=== PATIENT | male | born 1955 | race African-American/Black ===

== ENCOUNTER 2019-09-03 12:11 | Emergency (ER) | payer SELFPAY ==
[2019-09-03] MEDS ORDERED: DIAZEPAM 10 MG/2 ML INJ SYRINGE ONE (12:40)
[2019-09-03] MEDS ORDERED: NA CHLORIDE 0.9% 1,000 ML ONE (12:40)
[2019-09-03] MEDS ORDERED: ONDANSETRON 4 MG/2 ML VIAL ONE (12:40)
[2019-09-03] MEDS ORDERED: MORPHINE 4 MG/ML SYR ONE ×2 (12:41→15:22)
[2019-09-03 13:12] LABS: Absolute Lymphocytes (CBC) 0.8 K/uL (0.7-4.9); Basophils % 0.6 % (0-1.3); Hematocrit 32.9 % (39.6-49.0); Lymphocytes % 14.7 % (15.3-44.8); MPV 6.9 fL (7.6-11.3); RBC Red Blood Cell Count 3.91 M/uL (4.33-5.43)
[2019-09-03 13:36] LABS: ALT/SGPT 27 U/L (12-78); AST/SGOT 17 U/L (15-37); Alkaline Phosphatase 54 U/L (45-117); BUN Blood Urea Nitrogen 11 mg/dL (7-18); Bicarbonate 27 mmol/L (21-32); Bilirubin Direct < 0.1 mg/dL (0-0.2); Bilirubin Total 0.4 mg/dL (0.2-1.0); Glucose Level 107 mg/dL (74-106); Lipase 98 U/L (73-393); Potassium 4.4 mmol/L (3.5-5.1); Protein, Total 7.9 g/dL (6.4-8.2); Sodium Level 142 mmol/L (136-145)
--- NOTE | 2019-09-03 14:51 | RAD REPORT ---
EXAM DESCRIPTION: MRI - Spine Lumbar W/Wo Cont- 09/03/2019 2:39 pm CLINICAL HISTORY: LOWER BACK PAIN Back pain, radiculopathy. COMPARISON: No comparisons FINDINGS: Vertebral body heights are within normal limits. Mildly heterogenous marrow pattern is seen. No fracture is suspected. The conus medullaris terminates at a normal level. No thickening of the cauda equina or clumping of n erve roots seen. L1-2 level: No significant findings. L2-3 level: Mild facet hypertrophy. L3-4 level: Broad-based posterior bulge is present with moderate facet and ligamentum flavum hypertro phy. Moderate central canal stenosis is present with lateral recess stenosis on the left suspected. B oth exit foramina are moderately narrowed. L4-5 level: Mild posterior disc bulge asymmetric to the left foraminal region is reason with mild fac et and ligamentum flavum hypertrophy. Mild attenuation of the left lateral recess is seen. Mild narro wing of both exit foramina. L5-S1 level: Minimal degenerative anterolisthesis is present with small central disc protrusion prese nt. Mild facet and ligamentum flavum hypertrophy is seen. Mild central canal narrowing is evident. Mo derate narrowing of both exit foramina seen. No pathologic post-contrast enhancement seen to indicate tumor or infection. IMPRESSION: Moderate multilevel lower lumbar spondylosis is present, most significant at L3-4. No pathologic post-contrast enhancement.
[2019-09-03 15:28] LABS: Urine Blood NEGATIVE (NEG); Urine Glucose NEGATIVE (NEG); Urine Protein NEGATIVE (NEG); Urine pH 6.5 (5.0-7.0)
[2019-09-03 16:05] LABS: Urine Bacteria <20 /HPF (NONE SEEN); Urine Culture Reflex Order NOT NEEDED; Urine RBC <5 /HPF (NONE SEEN)
[2019-09-03] MEDS ORDERED: HYDROCODONE/APAP 10/325 TAB ONE (16:33)
--- NOTE | 2019-09-03 17:42 | EDPHYS ---
Physician Documentation [facility] Name: Piotr Gibson Age: 64 yrs Sex: Male : 1955 Arrival Date: 09/03/2019 Time: 12:16 Bed 25 Private MD: ED Physician Gerald Hernandez HPI: 09/02 12:21 This 64 yrs old Male presents to ER via Unassigned with complaints of back pain. cp 12:21 The patient presents with pain that is acute, with no known mechanism of injury. The cp symptoms are located in the low back. Onset: The symptoms/episode began/occurred 3 day(s) ago. 12:21 The pain radiates to the left leg. cp 12:21 Associated signs and symptoms: Pertinent positives: constipation, weakened urine cp stream, Pertinent negatives: abdominal pain, chest pain, fever, incontinence, numbness, urinary retention, weakness. Historical: - Allergies: 12:23 Shrimp; vc - Home Meds: 12:23 amlodipine 5 mg tab 1 tab once daily [Active]; atorvastatin 10 mg oral tab 1 tab once vc daily [Active]; - PMHx: 12:23 Hypertension; Hyperlipidemia; vc - PSHx: 12:23 None; vc - Immunization history:: Adult Immunizations up to date. - Social history:: Smoking status: Patient/guardian denies using tobacco, the patient reports quitting approximately 15 years ago. ROS: 12:30 Constitutional: Negative for body aches, chills, fever, poor PO intake. cp 12:30 Eyes: Negative for injury, pain, redness, and discharge. cp 12:30 ENT: Negative for drainage from ear(s), ear pain, sore throat, difficulty swallowing, difficulty handling secretions. 12:30 Cardiovascular: Negative for chest pain, edema, palpitations. 12:30 Respiratory: Negative for cough, shortness of breath, wheezing. 12:30 Abdomen/GI: Positive for constipation, Negative for abdominal pain, nausea, vomiting, and diarrhea, constipation, black/tarry stool, rectal bleeding, bowel incontinence. 12:30 Back: Positive for decreased range of motion, pain at rest, pain with movement, of the low back area, Negative for injury or acute deformity. 12:30 : Positive for difficulty urinating, Negative for testicular pain 12:30 All other systems are negative. Exam: 12:35 Constitutional: The patient appears in no acute distress, alert, awake, cp non-diaphoretic, non-toxic, well developed, well nourished, uncomfortable. 12:35 Head/Face: Normocephalic, atraumatic. cp 12:35 Eyes: Periorbital structures: appear normal, Conjunctiva: normal, no exudate, no injection, Sclera: no appreciated abnormality, Lids and lashes: appear normal, bilaterally. 12:35 ENT: External ear(s): are unremarkable, Nose: is normal, Mouth: Lips: moist, Oral mucosa: pink and intact, moist, Posterior pharynx: is normal, airway is patent, no erythema, no exudate. 12:35 Neck: ROM/movement: is normal, is supple, without pain, no range of motions limitations, no nuchal rigidity. 12:35 Chest/axilla: Inspection: normal, Palpation: is normal, no crepitus, no tenderness. 12:35 Cardiovascular: Rate: normal, Rhythm: regular, Edema: is not appreciated, JVD: is not appreciated. 12:35 Respiratory: the patient does not display signs of respiratory distress, Respirations: normal, no use of accessory muscles, no retractions, labored breathing, is not present, Breath sounds: are clear throughout, no decreased breath sounds, no stridor, no wheezing. 12:35 Abdomen/GI: Inspection: abdomen appears normal, Bowel sounds: active, all quadrants, Palpation: soft, in all quadrants, nontender, in all quadrants, voluntary guarding, is not appreciated, involuntary guarding, is not appreciated. 12:35 Abdomen/GI: Rectal exam: rectal tone normal, Stool: brown, guaiac negative. cp 12:35 Back: pain, that is severe, of the low back area, ROM is painful, with all movement, Straight leg raises: right lower extremity does not illicit pain, left lower extremity illicits pain, at 45 degrees. 12:35 Skin: cellulitis, is not appreciated, no rash present. 12:35 Neuro: Orientation: to person, place \T\ time. Mentation: is normal, Motor: moves all fours, strength is normal, Sensation: is normal, Deep tendon reflexes are 2+ (normal) in the right patellar, right Achilles, left patellar and left Achilles. Vital Signs: 12:15 BP 159 / 74; Pulse 87; Resp 15; Temp 98.7(O); Pulse Ox 99% on R/A; Weight 79.38 kg; vc Height 5 ft. 10 in. (177.80 cm); Pain 10/10; 13:15 BP 141 / 81; Pulse 93; Resp 16; Pulse Ox 97% on R/A; rb1 15:02 BP 181 / 83; Pulse 104; Resp 17; Pulse Ox 98% on R/A; rb1 16:22 BP 182 / 92; Pulse 97; Resp 18; Pulse Ox 97% on R/A; mh5 17:14 BP 176 / 80; Pulse 99; Resp 19; Pulse Ox 97% on R/A; rb1 12:15 Body Mass Index 25.11 (79.38 kg, 177.80 cm) vc MDM: 12:21 Patient medically screened. cp 16:15 Physician consultation: was contacted at 16:15, regarding consult, patient's condition, cp DR Rakan Perry, neurosurgery with [facility], recommends outpatient follow-up in clinic next week. Patient does not need to be transferred for continued care. 17:36 ED course: No results found according to the [place] prescription monitoring program cp website. 17:40 Data reviewed: vital signs, nurses notes, lab test result(s), radiologic studies, MRI, cp I have discussed the patient's presentation/case with the attending Emergency Department Physician; and as a result, I will discharge patient. 17:40 Response to treatment: the patient's symptoms have markedly improved after treatment, cp VSS. Pain markedly improved and patient ambulated unassisted in ED, and as a result, I will discharge patient. 09/02 12:19 Order name: Basic Metabolic Panel; Complete Time: 13:47 cp 09/02 13:47 Interpretation: Normal except: CL 110; GLUC 107; GFR 73. cp 09/02 12:19 Order name: CBC with Diff; Complete Time: 13:47 cp 09/02 13:47 Interpretation: Normal except: RBC 3.91; HGB 10.8; HCT 32.9; MPV 6.9; DAI% 74.0; LYM% cp 14.7. 09/02 12:19 Order name: Creatinine for Radiology; Complete Time: 13:47 cp 09/02 12:19 Order name: Hepatic Function; Complete Time: 13:47 09/02 13:48 Interpretation: Normal except: ALB 3.0; GLOB 4.9; A/G 0.6. 09/02 12:19 Order name: Lipase; Complete Time: 13:47 09/02 14:56 Order name: Urine Microscopic Only; Complete Time: 16:13 09/02 13:04 Order name: Spine Lumbar W/Wo Cont; Complete Time: 15:23 EDMS 09/02 15:32 Interpretation: Report reviewed. 09/02 15:23 Order name: Urine Dipstick--Ancillary (enter results) 09/02 15:29 Order name: Urine Dipstick-Ancillary EDWV 09/02 12:19 Order name: IV Saline Lock; Complete Time: 13:09 09/02 12:19 Order name: Labs collected and sent; Complete Time: 13:09 09/02 14:56 Order name: Urine Dipstick-Ancillary (obtain specimen); Complete Time: 15:17 09/02 14:56 Order name: Bladder Scanner: pre and post void; Complete Time: 15:27 cp Administered Medications: 12:23 CANCELLED (Physician Discretion): fentaNYL (PF) 25 mcg IVP once; RASS on ADMIN: cp Combtv4, Very Agttd3, Agttd2, Rstlss1, AlertClm0, Drwsy-1, Lt Sdtn-2, Mod Sdtn-3, Dp Sdtn-4, UnArsble-5 13:00 Drug: Zofran (Ondansetron) 4 mg Route: IVP; Site: left antecubital; vc 13:15 Follow up: Response: No adverse reaction rb1 13:03 Drug: Diazepam 2 mg Route: IVP; Site: left antecubital; vc 13:15 Follow up: Response: No adverse reaction rb1 13:15 Follow up: Response: No adverse reaction; Anxiety decreased rb1 13:05 Drug: morphine 4 mg Route: IVP; Site: left antecubital; vc 13:15 Follow up: Response: No adverse reaction; Pain is decreased rb1 13:08 Drug: NS 0.9% 1000 ml Route: IV; Rate: 1 bolus; Site: left antecubital; vc 15:07 Follow up: IV Status: Completed infusion rb1 15:25 Drug: morphine 4 mg Route: IVP; Site: left antecubital; rb1 15:40 Follow up: Response: No adverse reaction; Pain is decreased rb1 16:31 Drug: HYDROcodone-acetaminophen 10 mg-325 mg 1 tabs Route: PO; rb1 17:04 Follow up: Response: No adverse reaction; Pain is decreased rb1 Disposition: 09/03 07:09 Co-signature as Attending Physician, Gerald Hernandez MD I agree with the assessment and kdr plan of care. Disposition: 09/03/19 17:40 Discharged to Home. 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 - Condition is Stable. - Discharge Instructions: Back Pain, Adult, Heat Therapy, Back Exercises. - Prescriptions for Tylenol- Codeine #3 300-30 mg Oral Tablet - take 2 tablet by ORAL route every 6 hours As needed; 30 tablet. Medrol (William) 4 mg Oral Tablets, Dose Pack - take 1 tablet by ORAL route as directed - follow package instructions; 1 packet. orphenadrine citrate 100 mg Oral Tablet Sustained Release - take 1 tablet by ORAL route 2 times per day As needed; 20 tablet. - Medication Reconciliation Form, Thank You Letter, Antibiotic Education, Prescription Opioid Use form. - Follow up: Private Physician; When: DR Rakan Perry, neurosurgery \T\[facility] next week; Reason: Recheck today's complaints. - Problem is new. - Symptoms have improved. Signatures: Dispatcher [employer] EDMS Gerald Hernandez MD MD kdr Antonio Huddleston PA PA cp Marla Loyd, RN RN rb1 Thelma Kim RN RN vc Corrections: (The following items were deleted from the chart) 09/02 12:23 12:19 fentaNYL (PF) 25 mcg IVP once; RASS on ADMIN: Combtv4, Very Agttd3, Agttd2, cp Rstlss1, AlertClm0, Drwsy-1, Lt Sdtn-2, Mod Sdtn-3, Dp Sdtn-4, UnArsble-5 ordered. cp 13:03 12:44 Lumbar Spine Wo Con+MRI.RAD.BRZ ordered. EDMS EDMS 13:23 12:21 Angio Aorta For Dissection+CT.RAD.BRZ ordered. EDMS EDMS 18:46 17:40 09/03/2019 17:40 Discharged to Home. Impression: Low back pain; Intervertebral rb1 disc stenosis of neural canal of lumbar region - L3-L4. Condition is Stable. Forms are Medication Reconciliation Form, Thank You Letter, Antibiotic Education, Prescription Opioid Use. Follow up: Private Physician; When: DR Rakan Perry, neurosurgery \T\[facility] next week; Reason: Recheck today's complaints. Problem is new. Symptoms have improved. cp
--- NOTE | 2019-09-03 17:42 | ER ---
Nurse's Notes [facility] Name: Piotr Gibson Age: 64 yrs Sex: Male : 1955 Arrival Date: 09/03/2019 Time: 12:16 Bed 25 Private MD: Diagnosis: Low back pain;Intervertebral disc stenosis of neural canal of lumbar [id number] Presentation: 09/02 12:15 Initial Sepsis Screen: Does the patient meet any 2 criteria? No. Patient's initial vc sepsis screen is negative. Does the patient have a suspected source of infection? No. Patient's initial sepsis screen is negative. Risk Assessment: Do you want to hurt yourself or someone else? Patient reports no desire to harm self or others. 12:15 Acuity: WALESKA 3 vc 12:17 Chief complaint: Patient states: "I woke up Saturday morning thinking I had slept wrong, vc but today it is just worse. I can barely move or sit up." EMS states: "We were called because the PA wants to rule out aortic dissection. He woke up Saturday with back spasms and today it is just worse.". Coronavirus screen: Patient denies fever greater than 100.4F, cough, shortness of breath, or difficulty breathing. Proceed with normal triage process. Ebola Screen: No symptoms or risks identified at this time. 12:17 Method Of Arrival: EMS: [facility] vc 12:25 Care prior to arrival: Medication(s) given: methocarbamol 750mg x 2 tabs. vc 12:27 Onset of symptoms was August 31, 2019 at 08:00. vc Triage Assessment: 12:27 General: Appears in no apparent distress. uncomfortable, Behavior is calm, cooperative, vc appropriate for age. Pain: Complains of pain in left low back Aggravated by increased activity, movement. Historical: - Allergies: 12:23 Shrimp; vc - Home Meds: 12:23 amlodipine 5 mg tab 1 tab once daily [Active]; atorvastatin 10 mg oral tab 1 tab once vc daily [Active]; - PMHx: 12:23 Hypertension; Hyperlipidemia; vc - PSHx: 12:23 None; vc - Immunization history:: Adult Immunizations up to date. - Social history:: Smoking status: Patient/guardian denies using tobacco, the patient reports quitting approximately 15 years ago. Screenin:26 Abuse screen: Denies threats or abuse. Nutritional screening: No deficits noted. vc Tuberculosis screening: No symptoms or risk factors identified. Fall Risk None identified. Assessment: 12:27 General: See triage assessment. rb1 13:30 Reassessment: Patient appears in no apparent distress at this time. Patient and/or rb1 family updated on plan of care and expected duration. Pain level reassessed. Patient is alert, oriented x 3, equal unlabored respirations, skin warm/dry/pink. CO's at the bedside. 14:30 Reassessment: Pt. is off the unit for testing. rb1 15:00 Reassessment: Patient appears in no apparent distress at this time. Patient and/or rb1 family updated on plan of care and expected duration. Pain level reassessed. Patient is alert, oriented x 3, equal unlabored respirations, skin warm/dry/pink. Pain 6/10. Describes pain in the left lower back that radiates down the left leg. 16:00 Reassessment: Patient appears in no apparent distress at this time. No changes from rb1 previously documented assessment. 16:40 Reassessment: Patient appears in no apparent distress at this time. Patient and/or rb1 family updated on plan of care and expected duration. Pain level reassessed. Patient is alert, oriented x 3, equal unlabored respirations, skin warm/dry/pink. 17:40 Reassessment: Patient appears in no apparent distress at this time. Pt. ambulated rb1 around the nurse's station without difficulty. 18:24 Reassessment: [facility] [employer] [facility] for [facility] back to the [facility] facility. Vital Signs: 12:15 BP 159 / 74; Pulse 87; Resp 15; Temp 98.7(O); Pulse Ox 99% on R/A; Weight 79.38 kg; vc Height 5 ft. 10 in. (177.80 cm); Pain 10/10; 13:15 BP 141 / 81; Pulse 93; Resp 16; Pulse Ox 97% on R/A; rb1 15:02 BP 181 / 83; Pulse 104; Resp 17; Pulse Ox 98% on R/A; rb1 16:22 BP 182 / 92; Pulse 97; Resp 18; Pulse Ox 97% on R/A; mh5 17:14 BP 176 / 80; Pulse 99; Resp 19; Pulse Ox 97% on R/A; rb1 12:15 Body Mass Index 25.11 (79.38 kg, 177.80 cm) vc ED Course: 12:16 Patient arrived in ED. vc 12:16 [facility] cp 12:16 Gerald Hernandez MD is Attending Physician. cp 12:22 Triage completed. vc 12:27 Arm band placed on. vc 12:28 Patient has correct armband on for positive identification. Placed in gown. Pulse ox vc on. NIBP on. one guard at bedside, one sitting outside patient room. 12:55 Inserted saline lock: 20 gauge in right antecubital area, using aseptic technique. vc Blood collected. 12:59 Marla Loyd, RN is Primary Nurse. rb1 14:37 Spine Lumbar W/Wo Cont In Process Unspecified. EDMS 15:17 Urine collected: clean catch specimen, clear. 5 15:17 Urine Microscopic Only Sent. 5 15:43 initiated a transfer with Shanel from [facility]. eb 15:51 Bladder scan completed. PRE 538 POST 89. 5 15:53 Urine Dipstick--Ancillary (enter results) Sent. [facility] 16:[address] Perry the Neurosurgeon care professional for [facility] with Antonio claudio for patient consultation. 17:53 No provider procedures requiring assistance completed. IV discontinued, intact, rb1 bleeding controlled, No redness/swelling at site. Pressure dressing applied. Administered Medications: 12:23 CANCELLED (Physician Discretion): fentaNYL (PF) 25 mcg IVP once; RASS on ADMIN: cp Combtv4, Very Agttd3, Agttd2, Rstlss1, AlertClm0, Drwsy-1, Lt Sdtn-2, Mod Sdtn-3, Dp Sdtn-4, UnArsble-5 13:00 Drug: Zofran (Ondansetron) 4 mg Route: IVP; Site: left antecubital; vc 13:15 Follow up: Response: No adverse reaction rb1 13:03 Drug: Diazepam 2 mg Route: IVP; Site: left antecubital; vc 13:15 Follow up: Response: No adverse reaction rb1 13:15 Follow up: Response: No adverse reaction; Anxiety decreased rb1 13:05 Drug: morphine 4 mg Route: IVP; Site: left antecubital; vc 13:15 Follow up: Response: No adverse reaction; Pain is decreased rb1 13:08 Drug: NS 0.9% 1000 ml Route: IV; Rate: 1 bolus; Site: left antecubital; vc 15:07 Follow up: IV Status: Completed infusion rb1 15:25 Drug: morphine 4 mg Route: IVP; Site: left antecubital; rb1 15:40 Follow up: Response: No adverse reaction; Pain is decreased rb1 16:31 Drug: HYDROcodone-acetaminophen 10 mg-325 mg 1 tabs Route: PO; rb1 17:04 Follow up: Response: No adverse reaction; Pain is decreased rb1 Outcome: 17:40 Discharge ordered by . bear 17:53 Discharged to [facility]. rb1 17:53 Condition: stable 17:53 Discharge instructions given to CO's Instructed on discharge instructions, follow up and referral plans. medication usage, Demonstrated understanding of instructions, follow-up care, medications, Prescriptions given X 3. 18:46 Patient left the ED. rb1 Signatures: Dispatcher [employer] EDMS Antonio Huddleston PA PA cp Barber, Rebecca, RN RN rb1 Celine Frias [facility] Rukhsana Deleon Vanessa, RN RN vc
[2019-09-03 19:47] VITALS: TEMP 98.7
[2019-09-03 19:51] VITALS: O2SAT 97
[2019-09-03 19:53] VITALS: BP 176/80
== END 2019-09-03 18:46 | disposition home or self-care (01) ==
LOC: ER 12:11
DX: M99.53 Intervertebral disc stenosis of neural canal of lumbar region (principal); I10 Essential (primary) hypertension; E78.5 Hyperlipidemia, unspecified; Z91.013 Allergy to seafood
CPT/HCPCS: 36415; 72158; 80048; 80076; 81003; 81015; 83690; 85025; 96361; 96374; 96375; 99284; A9577; J2405; J3360; J7030